=== PATIENT | male | born 1945 | race Hispanic/Latino ===

== ENCOUNTER 2020-04-20 13:50 | Inpatient (IN) | payer MEDICARE, OTHER ==
[~2020-04-20] VITALS: Ht 177.8 cm; Wt 62.0 kg
[~2020-04-20 13:50] MED LIST: ASPI-1012 PO; DIPH25 PO; HYDR-2132 PO
[2020-04-20 14:28] LABS: BASOPHILS % (AUTO) 0.1 % (0.0-5.0); HEMATOCRIT 39.6 % (42-54); LYMPHOCYTES % (AUTO) 10.4 % (21.0-51.0); MEAN CORPUSCULAR HEMOGLOBIN 32.6 pg (27.0-33.0); MEAN CORPUSCULAR HGB CONC 35.1 g/dL (32.0-36.0); MEAN CORPUSCULAR VOLUME 92.7 fL (79-99); MONOCYTES % (AUTO) 7.1 % (3.0-13.0); NEUTROPHILS % (AUTO) 80.6 % (40.0-77.0); PLATELET COUNT (AUTO) 198 K/uL (130-400); RED BLOOD CELL COUNT(AUTO) 4.27 MIL/uL (4.50-6.20); RED CELL DISTRIBUTION WIDTH 12.9 % (11.0-15.5); WHITE BLOOD COUNT (AUTO) 7.9 K/uL (4.8-10.8)
[2020-04-20 14:38] LABS: CREATININE 0.9 mg/dL (0.5-1.5); POTASSIUM 3.3 mmol/L (3.5-5.1)
[2020-04-20 14:40] LABS: PARTIAL THROMBOPLASTIN TIME 28.8 SEC (26.3-35.5); PROTHROMBIN TIME 10.8 SEC (9.6-11.6)
[2020-04-20 14:43] LABS: ALBUMIN 3.7 g/dL (3.5-5.0); BILIRUBIN,TOTAL 1.5 mg/dL (0.2-1.0); TOTAL PROTEIN, SERUM 7.2 g/dL (6.0-8.3)
[2020-04-20 15:09] LABS: BILIRUBIN,URINE Negative (NEGATIVE); COLOR,URINE Yellow (YELLOW); GLUCOSE, URINE (UA) Negative (NEGATIVE); KETONES,URINE 40 mg/dL (NEGATIVE); LEUKOCYTE ESTERASE ,URINE Negative (NEGATIVE); NITRATE,URINE Negative (NEGATIVE); OCCULT BLOOD,URINE Negative (NEGATIVE); PH,URINE 5.5 (5.0-8.0); PROTEIN,URINE Trace mg/dL (NEGATIVE)
[2020-04-20 15:14] LABS: APPEARANCE,URINE SLIGHTLY CLOUDY (CLEAR)
[2020-04-20 15:21] LABS: BACTERIA,URINE Few /HPF (None Seen); MUCUS,URINE Few LPF (None Seen); RBC,URINE 0-1 /HPF (0-1); SQUAMOUS EPITHELIAL CELL,UR Rare /HPF (0-2); WBC,URINE 0-1 /HPF (0-1)
[2020-04-20] MEDS ORDERED: ACETAMINOPHEN 325 MG TAB PO PRN (17:45)
[2020-04-20] MEDS ORDERED: ONDANSETRON HCL 4 MG/2 ML VIAL IV PRN (17:45)
[2020-04-20] MEDS ORDERED: POTASSIUM CHLORIDE 20MEQ/100ML 200 ML IV ONE (19:52)
[2020-04-20] MEDS ORDERED: FAMOTIDINE/PF 20 MG/2 ML VIAL IV ONE (20:40)
[2020-04-20] MEDS: FAMOTIDINE/PF 20 MG/2 ML VIAL IV SCH (21:00)
[2020-04-20 22:20] VITALS: BP 144/80
[2020-04-20] MEDS ORDERED: CHOL100044 PO (22:44)
[2020-04-20] MEDS ORDERED: AMLO10TA7 PO (22:44)
[2020-04-20] MEDS ORDERED: CARB-38 PO (22:44)
[2020-04-20] MEDS ORDERED: AEC81 PO (22:44)
[2020-04-20] MEDS ORDERED: FINA5TAB41 PO (22:44)
[2020-04-20] MEDS ORDERED: GABA300C PO (22:44)
[2020-04-20] MEDS ORDERED: CYAN100084 PO (22:44)
[2020-04-20] MEDS ORDERED: ROPI0.5T7 PO (22:44)
[2020-04-20] MEDS: LIDOCAINE HCL-MPF 1% 2ML VIAL IV PRN (23:20)
[2020-04-20] MEDS: POTASSIUM CHLORIDE 20MEQ/100ML 100 ML IV PRN (23:20)
[2020-04-20] MEDS: DEXTROSE 5 % AND 0.9 % NACL 1,000 ML IV SCH (23:20)
[2020-04-20 23:33] VITALS: BP 146/90
[2020-04-21] VITALS (20 sets, daily range): BP systolic 113–153; BP diastolic 56–81
[2020-04-21] MEDS: ENOXAPARIN SODIUM 30 MG/0.3 ML SQ SCH ×3 (03:30→20:18)
[2020-04-21 05:25] LABS: BASOPHILS % (AUTO) 0.2 % (0.0-5.0); EOSINOPHILS % (AUTO) 0.9 % (0.0-8.0); HEMATOCRIT 35.8 % (42-54); LYMPHOCYTES % (AUTO) 10.1 % (21.0-51.0); MEAN CORPUSCULAR HEMOGLOBIN 31.9 pg (27.0-33.0); MEAN CORPUSCULAR HGB CONC 34.1 g/dL (32.0-36.0); MEAN CORPUSCULAR VOLUME 93.7 fL (79-99); MONOCYTES % (AUTO) 8.1 % (3.0-13.0); NEUTROPHILS % (AUTO) 80.1 % (40.0-77.0); PLATELET COUNT (AUTO) 197 K/uL (130-400); RED BLOOD CELL COUNT(AUTO) 3.82 MIL/uL (4.50-6.20); RED CELL DISTRIBUTION WIDTH 12.7 % (11.0-15.5); WHITE BLOOD COUNT (AUTO) 6.4 K/uL (4.8-10.8)
[2020-04-21 05:43] LABS: ALBUMIN 3.4 g/dL (3.5-5.0); BILIRUBIN,TOTAL 1.4 mg/dL (0.2-1.0); CREATININE 0.9 mg/dL (0.5-1.5); POTASSIUM 3.7 mmol/L (3.5-5.1); TOTAL PROTEIN, SERUM 6.6 g/dL (6.0-8.3)
[2020-04-21] MEDS ORDERED: LIDOCAINE HCL 1% 20 ML VIAL ONE (07:02)
[2020-04-21] MEDS ORDERED: PROPOFOL 10 MG/ML 20ML VIAL IV ONE (07:02)
[2020-04-21] MEDS: DEXTROSE 5 % AND 0.9 % NACL 1,000 ML IV SCH ×3 (07:05→23:16)
--- NOTE | 2020-04-21 08:10 | NUR ---
POSTOP FROM GI LAB INSERTION OF PEG.REVIEW PEG SITE TO HIS ABD . SITE DRSG DRY AND CLEAN AND STARTED POSTOP . V/S . AT THE BEDSIDE AND CALL LIGHT IN REACH..
[2020-04-21] MEDS: FAMOTIDINE/PF 20 MG/2 ML VIAL IV SCH ×2 (10:30→20:37)
--- NOTE | 2020-04-21 10:30 | NUR ---
PEG SITE BLEEDING. BRIGHT RED BLOOD . CLEANSE SITE . A SM PRESSURE DRSG ON ..
--- NOTE | 2020-04-21 10:55 | NUR ---
DR. VEE CALLED .
--- NOTE | 2020-04-21 11:33 | NUR ---
CALLED , AND UP DATE OF PEG SITE WAS BLEEDING WITH ORDERS TO FOLLOW
[2020-04-21] MEDS ORDERED: SILVER NITRATE APPLICATOR 1 SWAB TP SCH (11:45)
--- NOTE | 2020-04-21 12:20 | NUR ---
PEG TO HER LT SIDE, DRSG REMOVED AND APPLICATION OF SILVERNITRATE TO PEG DONE. NOTED NO BLEEDING . TO PEG SITE BUMPER. TIGHT UP . A DRSG APPLICATION ON .
--- NOTE | 2020-04-21 13:09 | NUR ---
RD UPDATE - ACCURATE PATIENT WEIGHT NEEDED Consult for tube feeding received. Need to confirm Patient weight to calculate nutrition needs. Unable to reach RN.
--- NOTE | 2020-04-21 16:06 | NUR ---
RD NOTIFICATION - TUBE FEEDING Pt s/p PEG Placement. Patient weight obtained from RN. Recommend initiate low rate Jevity 1.5 @15mls/hr. Goal rate 50mls/hr. Recommend H2O flushes at 120mls Q4hrs. Recommendations faxed to [phone] RN notified. RD Note: Pt admitted with oropharyngeal Dysphagia, Cachectic. Hx of weight loss and CA as per EMR. Underweight, BMI 19.1. Tube feeding recommendation to meet increased nutrition energy and protein needs. RD to continue to monitor. Please notify as additional nutrition concerns arise. Thank you.
--- NOTE | 2020-04-21 16:14 | NUR ---
ANITA NOTE/IA UNABLE TO MEET WITH PATIENT IN ROOM, NEXT OF KIN CALLED, BRIANDA JONES. PER SIBLING, PATIENT LIVES ALONE, IS INDEPENDENT WITH ADLS, NO USER OF PROVIDERS OR HOME HEALTH, HAS [facility] WC, [facility] AND FEELS SAFE FOR PATIENT TO RETURN HOME. Addendum: 04/21/20 at 1617 by YVETTE LOZANO RN CM Amended: Links added.
--- NOTE | 2020-04-21 16:30 | NUR ---
CHECK JAIDEN . TO HIS PEG SITE CLEAN.
--- NOTE | 2020-04-21 18:30 | NUR ---
PEG TUBE FEEDING STARTED PER DIETITIAN RECOMMENDATIONS VIA PEG. STARTED AT 15CCHR.AND A INCREASE OF 5 CCHR Q 4HR WITH WATER FLUSHES Q 4HRS ORDER. AT THE BEDSIDE AND REVIEW . EDUCATIONS . DRSG TO PEG CLEAN , N OTED NO BLEEDING. TO SITE. HOB UP. ASPIRATION PRECAUTION, REVIEW. .
[2020-04-22] VITALS (7 sets, daily range): BP systolic 120–150; BP diastolic 74–90
--- NOTE | 2020-04-22 02:40 | NUR ---
GAVE WATER FLUSH 120 ML OF WATER AT 20:00, ANOTHER 120 ML AT 00:00, AND WILL GIVE ANOTHER 120 ML AT 04:00 AM CHECKED RESIDUAL OF STOMACH AT 23:30 AND THERE WAS 50 ML OF YELLOW RESIDUAL. ADVANCED JEVITY TO 20 ML PER HOUR. WILL CHECK RESIDUAL AGAIN AT 04:30 AND IF POSSIBLE, WILL ADVANCE JEVITY FEEDING TO 25 ML/HOUR. PATIENT ALERT AND ORIENTED TIMES 3. NO PAIN AND NO ISSUES.
[2020-04-22 04:39] LABS: BASOPHILS % (AUTO) 0.1 % (0.0-5.0); EOSINOPHILS % (AUTO) 0.9 % (0.0-8.0); HEMATOCRIT 34.5 % (42-54); LYMPHOCYTES % (AUTO) 6.3 % (21.0-51.0); MEAN CORPUSCULAR HEMOGLOBIN 32.4 pg (27.0-33.0); MEAN CORPUSCULAR HGB CONC 34.8 g/dL (32.0-36.0); MEAN CORPUSCULAR VOLUME 93.2 fL (79-99); MONOCYTES % (AUTO) 6.3 % (3.0-13.0); NEUTROPHILS % (AUTO) 85.9 % (40.0-77.0); PLATELET COUNT (AUTO) 200 K/uL (130-400); RED CELL DISTRIBUTION WIDTH 12.5 % (11.0-15.5); WHITE BLOOD COUNT (AUTO) 10.6 K/uL (4.8-10.8)
[2020-04-22 05:10] LABS: ALBUMIN 3.2 g/dL (3.5-5.0); BILIRUBIN,TOTAL 1.5 mg/dL (0.2-1.0); CREATININE 0.8 mg/dL (0.5-1.5); POTASSIUM 3.7 mmol/L (3.5-5.1); TOTAL PROTEIN, SERUM 6.3 g/dL (6.0-8.3)
[2020-04-22] MEDS: POTASSIUM CHLORIDE 20MEQ/100ML 100 ML IV PRN (05:25)
[2020-04-22] MEDS: LIDOCAINE HCL-MPF 1% 2ML VIAL IV PRN (05:26)
[2020-04-22] MEDS: ENOXAPARIN SODIUM 30 MG/0.3 ML SQ SCH (09:00)
[2020-04-22] MEDS: FAMOTIDINE/PF 20 MG/2 ML VIAL IV SCH ×2 (09:19→22:26)
[2020-04-22] MEDS: DEXTROSE 5 % AND 0.9 % NACL 1,000 ML IV SCH (10:44)
--- NOTE | 2020-04-22 13:29 | NUR ---
RD UPDATE RD contacted by CM, need for Bolus feeding recommendations. Recommend 5 cans Jevity 1.5 per day (6AM-1can, 10AM-1can, 2PM-1can, 6PM-1can, 10PM-1can). Recommendation faxed to [phone]), CM notified.
--- NOTE | 2020-04-22 15:07 | NUR ---
CM NOTE/DCP HOME/[facility] TUBE FEEDING REQUEST MEET WITH PATIENT IN ROOM, PATIENTS GIRLFRIEND AT BEDSIDE. PER PATIENT, WISHES TO RETURN HOME WITH PEG TUBE FEEDINGS. [facility] FOR [facility], [facility]ED [facility] CLINICAL PACKET WITH PEG TUBE FEEDINGS AND ORDER FOR HOME HEALTH FAXED, ANITA TO FOLLOW UP. REPORT GIVEN TO DIMAS PAULSON, PRIMARY NURSE, WELL PATIENT AND GIRLFRIEND. FAMILY TO LEARN PEG TUBE FEEDINGS FOR HOME USE.
--- NOTE | 2020-04-22 20:15 | NUR ---
Re: Water flushes Since reported pt declined placement, water flushing demonstrated to family at the bedside, showed her how to check for residual, before doing any water flushes pt need to be on HBR, 30degrees to prevent aspiration, N/V. I also emphasize to clamped the tube in case when she will be giving formula or water flush & the pt suddenly with urge to cough, to rapidly clamped the tube to avoid formula splashing to her.Also inform her to make sure leave the pt on HBR for an hour or two to prevent aspiration. I also showed her how to clean the PEG site, but inform once at home clean site with soap & water, pat dry & leave it open to air. For now softwick slit gauze applied. This teaching will need reinforcement & return demonstration. Residual zero, feeding increased to 40cc/hr at this time.
[2020-04-23] MEDS: DEXTROSE 5 % AND 0.9 % NACL 1,000 ML IV SCH ×3 (01:17→13:03)
[2020-04-23 03:56] VITALS: BP 138/77
[2020-04-23] MEDS: LACTULOSE 20 GM/30 ML UDCUP PO PRN (04:11)
[2020-04-23 05:45] LABS: BASOPHILS % (AUTO) 0.1 % (0.0-5.0); EOSINOPHILS % (AUTO) 1.4 % (0.0-8.0); HEMATOCRIT 35.2 % (42-54); LYMPHOCYTES % (AUTO) 8.8 % (21.0-51.0); MEAN CORPUSCULAR HEMOGLOBIN 32.4 pg (27.0-33.0); MEAN CORPUSCULAR HGB CONC 34.7 g/dL (32.0-36.0); MEAN CORPUSCULAR VOLUME 93.4 fL (79-99); MONOCYTES % (AUTO) 8.9 % (3.0-13.0); PLATELET COUNT (AUTO) 210 K/uL (130-400); RED BLOOD CELL COUNT(AUTO) 3.77 MIL/uL (4.50-6.20); RED CELL DISTRIBUTION WIDTH 12.9 % (11.0-15.5); WHITE BLOOD COUNT (AUTO) 9.2 K/uL (4.8-10.8)
[2020-04-23 06:08] LABS: ALBUMIN 3.2 g/dL (3.5-5.0); BILIRUBIN,TOTAL 1.1 mg/dL (0.2-1.0); CREATININE 0.9 mg/dL (0.5-1.5); POTASSIUM 3.2 mmol/L (3.5-5.1); TOTAL PROTEIN, SERUM 6.4 g/dL (6.0-8.3)
[2020-04-23 07:53] VITALS: BP 138/84
[2020-04-23] MEDS: FAMOTIDINE/PF 20 MG/2 ML VIAL IV SCH ×2 (09:00→20:23)
[2020-04-23] MEDS ORDERED: POTASSIUM CHLORIDE 10% ELIXIR 20 MEQ/15 ML UDCUP PO PRN (10:30)
[2020-04-23 12:02] VITALS: BP 140/80
--- NOTE | 2020-04-23 15:00 | NUR ---
CM NOTE/DME/HH CM was notified by staff that pt or family is advising that tube feedings are set up through [facility]. CM then called [facility] and spoke to Karena and pt referral was not found in system. CM then spoke to Brenna who is pts girlfriend and was advised to call brother Marisol Whalen who is in charge of his medical care. CM then spoke to brother who states he has communicated with [facility] only and was notified that arrangements are in process and has not received confirmation of any arrangements. States he was notified by [facility] that home health will more than likely be set up with previous agency called [facility]. CM obtained telephone consent for [facility] to confirm arrangements. CM explained that pt cannot be safely discharged without confirming tube feedings/supplies have been approved by [facility]. Verbalized understanding. ANITA then spoke to pts girlfriend Brenna who is in pt room and updated with above. States she is updating pt also. CM update [facility] HELPER Bella and explained services/DME authorizations are pending through [facility] and cannot be verified until Saturday since [facility] is not open weekends. CM to f/u.
[2020-04-23 16:02] VITALS: BP 136/74
[2020-04-23 20:00] VITALS: BP 142/80
[2020-04-23 23:43] VITALS: BP 149/83
[2020-04-24] MEDS: DEXTROSE 5 % AND 0.9 % NACL 1,000 ML IV SCH ×4 (01:45→22:03)
[2020-04-24 04:00] VITALS: BP 131/72
[2020-04-24 06:02] LABS: HEMATOCRIT 36.8 % (42-54); MEAN CORPUSCULAR HEMOGLOBIN 32.8 pg (27.0-33.0); MEAN CORPUSCULAR HGB CONC 35.3 g/dL (32.0-36.0); MEAN CORPUSCULAR VOLUME 92.9 fL (79-99); RED BLOOD CELL COUNT(AUTO) 3.96 MIL/uL (4.50-6.20); RED CELL DISTRIBUTION WIDTH 12.6 % (11.0-15.5); WHITE BLOOD COUNT (AUTO) 7.8 K/uL (4.8-10.8)
[2020-04-24 06:17] LABS: CREATININE 0.8 mg/dL (0.5-1.5); POTASSIUM 3.8 mmol/L (3.5-5.1)
[2020-04-24 08:00] VITALS: BP 136/84
[2020-04-24] MEDS: ENOXAPARIN SODIUM 30 MG/0.3 ML SQ SCH (09:00)
[2020-04-24] MEDS: FAMOTIDINE/PF 20 MG/2 ML VIAL IV SCH ×2 (09:00→21:59)
[2020-04-24 11:59] VITALS: BP 134/81
[2020-04-24] MEDS: LACTULOSE 20 GM/30 ML UDCUP PO PRN ×2 (15:49→21:59)
[2020-04-24 16:00] VITALS: BP 141/83
[2020-04-24 20:00] VITALS: BP 132/76
--- NOTE | 2020-04-24 22:00 | NUR ---
MEDS SHIFT ASSESSMENT DONE, PLEASE REFER TO CHART. DUE MEDS ADMINISTERED, TOLERATED WELL. DUE FEEDING AND WATER FLUSHES GIVEN BY FAMILY, AGRICULTURAL EDUCATION TEACHER INSTRUCTING AND ASSISTING. PT TOLERATED FEEDING WELL. KEPT HOB ELEVATED. WILL MONITOR PT. CALL LIGHT WITHIN REACH. Addendum: 04/25/20 at 0417 by ISAEL MALONE RN RN Amended: Links added.
[2020-04-25] VITALS: BP 148/83
--- NOTE | 2020-04-25 02:00 | NUR ---
ROUNDS PT FAIRLY ASLEEP, NO DISTRESS NOTED. KEPT UNDISTURBED FOR NOW. WILL CONTINUE TO MONITOR. SIGNIFICANT OTHER ASLEEP AT BEDSIDE.
[2020-04-25] MEDS: DEXTROSE 5 % AND 0.9 % NACL 1,000 ML IV SCH ×3 (03:45→17:03)
[2020-04-25 04:38] VITALS: BP 150/78
[2020-04-25 05:16] LABS: BASOPHILS % (AUTO) 0.4 % (0.0-5.0); EOSINOPHILS % (AUTO) 6.1 % (0.0-8.0); HEMATOCRIT 34.3 % (42-54); LYMPHOCYTES % (AUTO) 10.2 % (21.0-51.0); MEAN CORPUSCULAR HEMOGLOBIN 32.3 pg (27.0-33.0); MEAN CORPUSCULAR VOLUME 92.5 fL (79-99); MONOCYTES % (AUTO) 10.8 % (3.0-13.0); NEUTROPHILS % (AUTO) 71.1 % (40.0-77.0); PLATELET COUNT (AUTO) 181 K/uL (130-400); RED BLOOD CELL COUNT(AUTO) 3.71 MIL/uL (4.50-6.20); RED CELL DISTRIBUTION WIDTH 12.5 % (11.0-15.5); WHITE BLOOD COUNT (AUTO) 7.9 K/uL (4.8-10.8)
[2020-04-25 05:37] LABS: BILIRUBIN,TOTAL 0.9 mg/dL (0.2-1.0); CREATININE 0.8 mg/dL (0.5-1.5); POTASSIUM 3.9 mmol/L (3.5-5.1)
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
[2020-04-25 08:00] VITALS: BP 162/96
[2020-04-25] MEDS: FAMOTIDINE/PF 20 MG/2 ML VIAL IV SCH (09:00)
[2020-04-25] MEDS: ENOXAPARIN SODIUM 30 MG/0.3 ML SQ SCH (09:00)
[2020-04-25 12:00] VITALS: BP 131/78
[2020-04-25 16:00] VITALS: BP 151/90
--- NOTE | 2020-04-25 16:46 | NUR ---
HOME WITH HOME HEALTH * PENDING * FROM [facility]; SPOKE TO YAHIR, STATES WILL BE CONFIRMED TOMORROW. CONFIRMED THAT PEG TUBE FEEDING RX HAS GONE TO [facility] FOR SIGN OFF BEFORE GOING TO [facility]- MAY TAKE ANOTHER TWO DAYS TO APPROVE. WENT TO ROOM- HAD BEEN ADVISED BY REYNA IRELAND AND RN THAT PATIENT/LADY FRIEND WANTS TO GO HOME TODAY. GOT TWO BOTTLES OF JEVITY 1.5 FROM DIETARY. EXPLAINED TO PARTNER MILK NEED TO BE REFRIGERATED AFTER DISCHARGE, VERBALIZED UNDERSTANDING. STATES PATIENT SAFE TO TRANSPORT BY PRIVATE VEHICLE. VERBALIZES FEELING OF SAFETY - STATES HAS BEEN TAUGHTER TO DO FEEDING AND FEELS CONFIDENT TO DO SO. YAHIR FROM [facility] STATES THAT BROTHER OF PATIENT HAD CALLED [facility] AND STATED THAT HE WAS NOT COMFORTABLE WITH PT GOING HOME BECAUSE HIS PARTNER WAS NOT GOING TO BE THERE ALL THE TIME-PARTNER STATES NO, SHE WILL STAY WITH HIM AT ALL TIMES. [facility] DOES NOT HAVE BROTHER ON FACE SHEET AT A CONTACT. PATIENT WANTS TO GO HOME IN CARE OF PARTNER Addendum: 04/25/20 at 1655 by CONSTANTINE NEVAREZ RN CM Amended: Links added.
--- NOTE | 2020-04-25 19:44 | NUR ---
maureen mckinnon, takes patient down on a wheelchair with his . no issues.
== END 2020-04-25 19:40 | disposition home health service (06) | DRG 644 ==
LOC: EDH 13:50 → EDHIP 17:37 → 3DH 22:13
PROVIDERS: ADMIT Family Medicine; ATTEND Family Medicine
PROC: 0DH63UZ Insertion of Feeding Device into Stomach, Percutaneous Approach (ICD-10-PCS; principal; 2020-04-21)
DX: D49.7 Neoplasm of unspecified behavior of endocrine glands and other parts of nervous system (principal); Z68.1 Body mass index [BMI] 19.9 or less, adult; R64 Cachexia; E44.0 Moderate protein-calorie malnutrition; R13.12 Dysphagia, oropharyngeal phase; R62.7 Adult failure to thrive; D64.9 Anemia, unspecified; E86.0 Dehydration; E87.6 Hypokalemia; G20 Parkinson's disease; H53.2 Diplopia; N18.9 Chronic kidney disease, unspecified; Z20.828 Contact with and (suspected) exposure to other viral communicable diseases; Z85.72 Personal history of non-Hodgkin lymphomas; Z92.21 Personal history of antineoplastic chemotherapy; Z83.3 Family history of diabetes mellitus; Z82.5 Family history of asthma and other chronic lower respiratory diseases; Z82.49 Family history of ischemic heart disease and other diseases of the circulatory system; Z82.0 Family history of epilepsy and other diseases of the nervous system
CPT/HCPCS: 36415; 43246; 71045; 80048; 80053; 81001; 82550; 82948; 84484; 85025; 85027; 85610; 85730; 87426; 93005; A4606; G0378; J1650; J2704; J3480; J3490; J7030; J7042; U0003

== ENCOUNTER 2020-05-17 15:35 | Emergency (ER) | payer OTHER ==
[~2020-05-17 15:35] MED LIST changes: +AEC81 PO; +AMLO-258 PO; -ASPI-1012 PO; +CARB-38 PO; +CHOL100044 PO; +CYAN100084 PO; +FINA5TAB41 PO; +GABA300C PO; +ROPI0.5T7 PO
[2020-05-17 16:26] LABS: BASOPHILS % (AUTO) 0.3 % (0.0-5.0); EOSINOPHILS % (AUTO) 0.8 % (0.0-8.0); HEMATOCRIT 38.2 % (42-54); LYMPHOCYTES % (AUTO) 5.4 % (21.0-51.0); MEAN CORPUSCULAR HEMOGLOBIN 34.2 pg (27.0-33.0); MEAN CORPUSCULAR HGB CONC 35.1 g/dL (32.0-36.0); MEAN CORPUSCULAR VOLUME 97.4 fL (79-99); MONOCYTES % (AUTO) 7.7 % (3.0-13.0); NEUTROPHILS % (AUTO) 84.3 % (40.0-77.0); PLATELET COUNT (AUTO) 196 K/uL (130-400); RED BLOOD CELL COUNT(AUTO) 3.92 MIL/uL (4.50-6.20); RED CELL DISTRIBUTION WIDTH 14.8 % (11.0-15.5); WHITE BLOOD COUNT (AUTO) 10.8 K/uL (4.8-10.8)
[2020-05-17 16:39] LABS: INR 0.94 (0.85-1.15); PARTIAL THROMBOPLASTIN TIME 24.7 SEC (26.3-35.5); PROTHROMBIN TIME 10.2 SEC (9.6-11.6)
[2020-05-17 16:41] LABS: CREATININE 1.1 mg/dL (0.5-1.5); POTASSIUM 5.1 mmol/L (3.5-5.1)
[2020-05-17 16:53] LABS: ALBUMIN 3.5 g/dL (3.5-5.0); BILIRUBIN,TOTAL 1.3 mg/dL (0.2-1.0); TOTAL PROTEIN, SERUM 7.4 g/dL (6.0-8.3)
[2020-05-17 16:54] LABS: APPEARANCE,URINE Clear (CLEAR); BILIRUBIN,URINE Negative (NEGATIVE); COLOR,URINE Dark Yellow (YELLOW); GLUCOSE, URINE (UA) Negative (NEGATIVE); KETONES,URINE Negative (NEGATIVE); LEUKOCYTE ESTERASE ,URINE Negative (NEGATIVE); NITRATE,URINE Negative (NEGATIVE); OCCULT BLOOD,URINE Negative (NEGATIVE); PROTEIN,URINE Negative (NEGATIVE)
== END 2020-05-17 18:21 | disposition home or self-care (01) ==
LOC: EDH 15:35
DX: R33.9 Retention of urine, unspecified (principal); E87.1 Hypo-osmolality and hyponatremia; I10 Essential (primary) hypertension; Z87.891 Personal history of nicotine dependence
CPT/HCPCS: 36415; 51702; 74176; 80053; 81003; 82550; 84484; 85025; 85610; 85730; 93005

== ENCOUNTER 2020-05-27 19:19 | Emergency (ER) | payer OTHER ==
[2020-05-27 20:31] LABS: BASOPHILS % (AUTO) 0.4 % (0.0-5.0); EOSINOPHILS % (AUTO) 1.3 % (0.0-8.0); HEMATOCRIT 36.9 % (42-54); LYMPHOCYTES % (AUTO) 6.2 % (21.0-51.0); MEAN CORPUSCULAR HEMOGLOBIN 33.5 pg (27.0-33.0); MEAN CORPUSCULAR HGB CONC 33.6 g/dL (32.0-36.0); MEAN CORPUSCULAR VOLUME 99.7 fL (79-99); MONOCYTES % (AUTO) 8.7 % (3.0-13.0); NEUTROPHILS % (AUTO) 81.6 % (40.0-77.0); PLATELET COUNT (AUTO) 271 K/uL (130-400); RED CELL DISTRIBUTION WIDTH 14.5 % (11.0-15.5); WHITE BLOOD COUNT (AUTO) 13.8 K/uL (4.8-10.8)
[2020-05-27 20:47] LABS: INR 0.96 (0.85-1.15); PARTIAL THROMBOPLASTIN TIME 28.4 SEC (26.3-35.5); PROTHROMBIN TIME 10.4 SEC (9.6-11.6)
[2020-05-27 20:49] LABS: CREATININE 0.7 mg/dL (0.5-1.5); POTASSIUM 4.4 mmol/L (3.5-5.1)
[2020-05-27 20:56] LABS: ALBUMIN 2.8 g/dL (3.5-5.0); BILIRUBIN,TOTAL 0.9 mg/dL (0.2-1.0); TOTAL PROTEIN, SERUM 7.4 g/dL (6.0-8.3)
[2020-05-27] MEDS ORDERED: IPRATROPIUM/ALBUTEROL SULFATE 3 ML SOLUTION IH ONE (21:33)
[2020-05-27] MEDS ORDERED: LEVOFLOXACIN 500 MG TABLET ONE (22:13)
== END 2020-05-27 22:53 | disposition home or self-care (01) ==
LOC: EDH 19:19
DX: J20.9 Acute bronchitis, unspecified (principal); R19.7 Diarrhea, unspecified; I10 Essential (primary) hypertension; Z87.891 Personal history of nicotine dependence
CPT/HCPCS: 36415; 71045; 80053; 82150; 82550; 83690; 84484; 85025; 85610; 85730; 93005; 94640; 96360

== ENCOUNTER 2020-05-29 17:11 | Inpatient (IN) | payer MEDICARE, OTHER ==
[~2020-05-29] VITALS: Ht 180.3 cm; Wt 71.1 kg
[2020-05-29 17:41] LABS: BASOPHILS % (AUTO) 0.3 % (0.0-5.0); EOSINOPHILS % (AUTO) 2.6 % (0.0-8.0); HEMATOCRIT 28.8 % (42-54); LYMPHOCYTES % (AUTO) 9.8 % (21.0-51.0); MEAN CORPUSCULAR HEMOGLOBIN 33.7 pg (27.0-33.0); PLATELET COUNT (AUTO) 246 K/uL (130-400); RED BLOOD CELL COUNT(AUTO) 2.91 MIL/uL (4.50-6.20); RED CELL DISTRIBUTION WIDTH 14.2 % (11.0-15.5); WHITE BLOOD COUNT (AUTO) 6.6 K/uL (4.8-10.8)
[2020-05-29 17:55] LABS: INR 1.05 (0.85-1.15); PARTIAL THROMBOPLASTIN TIME 26.8 SEC (26.3-35.5); PROTHROMBIN TIME 11.3 SEC (9.6-11.6)
[2020-05-29 18:41] LABS: CARBON DIOXIDE 27 mmol/L (21-32); CHLORIDE 101 mmol/L (101-111); CREATININE 0.5 mg/dL (0.5-1.5); GLOMERULAR FILTR. RATE CALC 171 mL/min (>60); GLUCOSE,RANDOM 110 mg/dL (70-105); SODIUM SERUM 136 mmol/L (136-145); UREA NITROGEN, BLOOD 19 mg/dL (7-18)
[2020-05-29 18:45] LABS: APPEARANCE,URINE CLOUDY (CLEAR); BILIRUBIN,URINE NEGATIVE (NEGATIVE); COLOR,URINE YELLOW (YELLOW); GLUCOSE, URINE (UA) NEGATIVE (NEGATIVE); KETONES,URINE NEGATIVE (NEGATIVE); LEUKOCYTE ESTERASE ,URINE LARGE (NEGATIVE); NITRATE,URINE POSITIVE (NEGATIVE); OCCULT BLOOD,URINE NEGATIVE (NEGATIVE); PH,URINE 7.5 (5.0-8.0); PROTEIN,URINE NEGATIVE (NEGATIVE)
[2020-05-29 18:52] LABS: ALANINE AMINOTRANSFERASE 12 U/L (12-78); ASPARTATE AMINOTRANSFERASE 34 U/L (10-37); BILIRUBIN,TOTAL 0.7 mg/dL (0.2-1.0); CREATINE KINASE, TOTAL 52 U/L (21-232); MYOGLOBIN 73 ng/mL (10-92); TOTAL PROTEIN, SERUM 5.4 g/dL (6.0-8.3); TROPONIN I < 0.04 ng/mL (0.00-0.06)
[2020-05-29] MEDS ORDERED: MEROPENEM 1 GM VIAL ONE (19:23)
[2020-05-29 19:54] LABS: AMORPHOUS SEDIMENT,UR Few /LPF (None Seen); RBC,URINE 0-1 /HPF (0-1); SQUAMOUS EPITHELIAL CELL,UR Rare /HPF (0-2)
[2020-05-29 19:55] LABS: BACTERIA,URINE Moderate /HPF (None Seen)
[2020-05-29] MEDS: MEROPENEM 500 MG VIAL IV SCH (22:15)
[2020-05-29] MEDS: SODIUM CHLORIDE 0.9% 1000ML 1,000 ML IV SCH (22:15)
[2020-05-29] MEDS ORDERED: LACTULOSE 20 GM/30 ML UDCUP PO PRN (22:15)
[2020-05-29] MEDS ORDERED: HYDRALAZINE HCL 20 MG/ML VIAL IV PRN (22:15)
[2020-05-29] MEDS ORDERED: ONDANSETRON HCL 4 MG/2 ML VIAL IV PRN (22:15)
[2020-05-29] MEDS ORDERED: ACETAMINOPHEN 325 MG TAB PO PRN (22:15)
[2020-05-29 23:22] LABS: APPEARANCE,URINE Cloudy (CLEAR); BILIRUBIN,URINE Negative (NEGATIVE); COLOR,URINE Yellow (YELLOW); GLUCOSE, URINE (UA) Negative (NEGATIVE); KETONES,URINE Negative (NEGATIVE); LEUKOCYTE ESTERASE ,URINE Large (NEGATIVE); NITRATE,URINE Negative (NEGATIVE); OCCULT BLOOD,URINE Large (NEGATIVE); PH,URINE 8.5 (5.0-8.0); PROTEIN,URINE Trace mg/dL (NEGATIVE)
[2020-05-29 23:58] LABS: WBC,URINE 26-50 /HPF (0-1)
[2020-05-29 23:59] LABS: BACTERIA,URINE Moderate /HPF (None Seen); SQUAMOUS EPITHELIAL CELL,UR 0-2 /HPF (0-2)
[2020-05-30] MEDS: MEROPENEM 500 MG VIAL IV SCH ×3 (06:15→21:27)
[2020-05-30 06:44] LABS: BASOPHILS % (AUTO) 0.5 % (0.0-5.0); EOSINOPHILS % (AUTO) 2.1 % (0.0-8.0); LYMPHOCYTES % (AUTO) 10.3 % (21.0-51.0); MEAN CORPUSCULAR HEMOGLOBIN 33.6 pg (27.0-33.0); MEAN CORPUSCULAR HGB CONC 33.2 g/dL (32.0-36.0); NEUTROPHILS % (AUTO) 72.3 % (40.0-77.0); PLATELET COUNT (AUTO) 250 K/uL (130-400); RED BLOOD CELL COUNT(AUTO) 3.07 MIL/uL (4.50-6.20); RED CELL DISTRIBUTION WIDTH 14.2 % (11.0-15.5); WHITE BLOOD COUNT (AUTO) 6.3 K/uL (4.8-10.8)
[2020-05-30 06:50] LABS: CREATININE 0.5 mg/dL (0.5-1.5); POTASSIUM 3.3 mmol/L (3.5-5.1)
[2020-05-30] MEDS: FAMOTIDINE/PF 20 MG/2 ML VIAL IV SCH ×2 (09:00→21:52)
[2020-05-30] MEDS: SODIUM CHLORIDE 0.9% 1000ML 1,000 ML IV SCH ×2 (11:35→21:52)
--- NOTE | 2020-05-30 16:30 | NUR ---
SPOKE TO SHANTANU FOR DISCHARGE PLANNING PATIENT LIVES WITH PARTNER SHANTANU WHO MOVED IN AFTER LAST HOSPITLAIZTION TO PROVIDE CARE. PT HAS PEG FEEDINGS AND ALSO WENT HOME WITH ANGELITO STEWARD. [facility] [employer] HAS DELCINED SINCE LAST ADMISISON , IS DEPENDENT FOR ADL'S, & SHANTANU STATES NOW IS MAX ASSIST XT WO TO GET FROM BED TO CHAIR, ETC. STATES PT'S BROTHER, LISTED ON FACE SHEET, AND A NEIGHBOR HELP FOR TRANSPORT IN AND OUT OF VEHICLE, STATES BELIEVES HE NEEDS REHAB. CHART REVEALS UTI. POSSIBLE SNF ON DC FOR ST REHAB AND ABX? CM TO FOLLOW Addendum: 06/01/20 at 0859 by CONSTANTINE NEVAREZ RN CM Amended: Links added.
[2020-05-30] MEDS ORDERED: MEROPENEM 1 GM VIAL ONE (17:04)
[2020-05-30] MEDS ORDERED: SODIUM CHLORIDE 0.9% 50 ML IV ONE (17:05)
[2020-05-30 21:20] VITALS: BP 114/68
[2020-05-30] MEDS ORDERED: LEVE-43 PO (22:58)
[2020-05-30] MEDS ORDERED: FOLI0.8T PO (22:58)
[2020-05-31] VITALS (7 sets, daily range): BP systolic 89–131; BP diastolic 58–76
[2020-05-31 04:22] LABS: BASOPHILS % (AUTO) 0.3 % (0.0-5.0); EOSINOPHILS % (AUTO) 2.4 % (0.0-8.0); HEMATOCRIT 30.1 % (42-54); LYMPHOCYTES % (AUTO) 11.8 % (21.0-51.0); MEAN CORPUSCULAR HEMOGLOBIN 33.6 pg (27.0-33.0); MEAN CORPUSCULAR HGB CONC 33.9 g/dL (32.0-36.0); MONOCYTES % (AUTO) 12.6 % (3.0-13.0); PLATELET COUNT (AUTO) 261 K/uL (130-400); RED BLOOD CELL COUNT(AUTO) 3.04 MIL/uL (4.50-6.20); RED CELL DISTRIBUTION WIDTH 14.2 % (11.0-15.5); WHITE BLOOD COUNT (AUTO) 5.9 K/uL (4.8-10.8)
[2020-05-31] MEDS: MEROPENEM 500 MG VIAL IV SCH ×3 (04:34→22:36)
[2020-05-31 04:44] LABS: CREATININE 0.5 mg/dL (0.5-1.5); POTASSIUM 3.3 mmol/L (3.5-5.1)
[2020-05-31] MEDS ORDERED: POTASSIUM CHLORIDE 10% ELIXIR 20 MEQ/15 ML UDCUP PEG SCH (08:00)
[2020-05-31] MEDS: FAMOTIDINE/PF 20 MG/2 ML VIAL IV SCH ×2 (10:23→20:32)
[2020-05-31] MEDS ORDERED: AMLODIPINE BESYLATE 5 MG TAB PO SCH (11:50)
[2020-05-31] MEDS: CYANOCOBALAMIN (VITAMIN B-12) 1,000 MCG TABLET PO SCH (11:55)
[2020-05-31] MEDS: FOLIC ACID 1 MG TABLET PO SCH (11:56)
[2020-05-31] MEDS: ROPINIROLE HCL 0.25 MG TABLET PO SCH ×2 (11:57→20:51)
--- NOTE | 2020-05-31 13:15 | NUR ---
RD NOTE PT ADMITTED DUE TO DYSPHAGIA, GBW, AND UTI. PT HAS A PEG TUBE IN PLACE. RD CONSULTED FOR TF RECOMMENDATIONS. PER PREVIOUS EMR, PT HAS GAINED WEIGHT HOWEVER, HIS BMI OF 20 IS STILL LOW FOR AGE. PER NUTRITION FOCUSED PHYSICAL ASSESSMENT, PT HAS EVIDENCE OF MODERATE-SEVERE MALNUTRITION. 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 PT IS AT HIGH RISK FOR MODERATE TO SEVERE MALNUTRITION EVIDENCED BY LOW BMI FOR AGE AND NUTRITION FOCUSED PHYSICAL ASSESSMENT. RD RECOMMENDATION: CONTINUOS TF WITH JEVITY 1.5. INITIATE AT 20 ML/HR FOR FIRST 5 HRS, INCREASE RATE TOLERATED BY 5 ML EVERY 5 HRS TO A GOAL RATE OF 55 ML/HR. WATER FLUSH OF 195 ML Q6 THIS WILL PROVIDE: 1320 TOTAL VOLUME, 1980 KCAL, 84 GM PROTEIN 1003 WATER FROM FORMULA. MONITOR TF RESIDUALS, AND TOLERANCE. TF RECOMMENDATION FAXED TO 3C AT 1PM RD WILL CONTINUE TO FOLLOW. LABS: K 3.3, BUN 22, CREAT 0.5, BG 102, ALB 2.0 Addendum: 05/31/20 at [address] Amended: Links added.
[2020-05-31] MEDS: LEVETIRACETAM 100 MG/ML 5 ML UDCUP PO SCH ×2 (14:13→20:32)
[2020-05-31] MEDS: CARBIDOPA-LEVODOPA 25-100 TAB PO SCH ×2 (14:13→20:33)
[2020-05-31] MEDS: SODIUM CHLORIDE 0.9% 1000ML 1,000 ML IV SCH ×2 (14:24→19:59)
--- NOTE | 2020-05-31 18:00 | NUR ---
TUBE FEED STARTED PLACEMENT CHECK WITH ARE BOLUS, AND NO RESIDUAL. TUBE FEED AT 20 ML/HR JEVITY 1.5. PT IS AND NOT HAPPY. THEY BOTH WANT THE TUBE FEEDING THAT WAS GIVEN AT HOME, WHICH WAS ENSURE PLUS 8 OZ EVERY 3-4 HRS WITH FLUSH OF 100ML OF WATER BEFORE AND AFTER EACH FEEDING. [facility] UP WITH DIETITIAN TOMORROW.
--- NOTE | 2020-05-31 20:32 | NUR ---
MEDS Meds crushed and given thru peg.Peg tube flushed with no difficulty.Hob up 45 degrees.Tolerating tubefeeding via pump.No residual noted.Pt. at bedside.
[2020-05-31] MEDS: GABAPENTIN 300 MG CAPSULE PO SCH (20:33)
[2020-05-31] MEDS: FINASTERIDE 5 MG TABLET PO SCH (20:33)
[2020-05-31] MEDS ORDERED: LEVETIRACETAM 500 MG TABLET PO SCH (21:00)
--- NOTE | 2020-05-31 22:00 | NUR ---
BEDBATH Pt given a bed bath per staff,reported a small necrotic area at the tip of the penis.De Guzman catheter care done.De Guzman cath secured with statlock.
--- NOTE | 2020-05-31 23:05 | NUR ---
DNR signed DNR form.
--- NOTE | 2020-05-31 23:32 | NUR ---
CUTTER IN Paged CIRILO SINGH CUTTER IN re pt.s bp in the 80's systolic.Pt asleep,arousable.
--- NOTE | 2020-05-31 23:37 | NUR ---
RN OFFICE Rogerio SINGH np called back,he gave order to give 500 ml ns bolus for low bp.
[2020-05-31] MEDS ORDERED: SODIUM CHLORIDE 0.9% 500ML 500 ML IV ONE (23:39)
--- NOTE | 2020-05-31 23:41 | NUR ---
NS BOLUS NS 500 ML Bolus given for low bp.
[2020-05-31] MEDS ORDERED: SODIUM CHLORIDE 0.9% 500ML 500 ML in SODIUM CHLORIDE 0.9% 500ML 500 ML IV SCH (23:45)
[2020-06-01] VITALS (8 sets, daily range): BP systolic 81–129; BP diastolic 41–73
[2020-06-01 06:37] LABS: CREATININE 0.6 mg/dL (0.5-1.5); POTASSIUM 3.6 mmol/L (3.5-5.1)
[2020-06-01] MEDS: ***HM*** (Cholecalciferol (Vitamin D3) (Vitamin D3) 25 MCG) PO SCH (09:00)
--- NOTE | 2020-06-01 09:29 | NUR ---
RD UPDATE RD to change tube feeding feeding formula for Pt family preference. Recommend Bolus Tube Feeding, Ensure Enlive Formula, 5 cans per day (Schedule 6AM-1can, 10AM-1 can, 2PM-1can, 6PM-1can, 10PM-1can) Recommend 70-100mls free H2O before and after each feeding. Recommendations faxed to Eileen RN notified. RD to continue to monitor. Please notify as additional nutrition concerns arise. Thank you.
[2020-06-01] MEDS: ROPINIROLE HCL 0.25 MG TABLET PO SCH ×2 (10:55→22:04)
[2020-06-01] MEDS: CARBIDOPA-LEVODOPA 25-100 TAB PO SCH ×3 (10:56→22:05)
[2020-06-01] MEDS: GABAPENTIN 300 MG CAPSULE PO SCH ×2 (10:56→22:05)
[2020-06-01] MEDS: CEFTRIAXONE SODIUM 1 GM IVP SCH (10:57)
[2020-06-01] MEDS: CYANOCOBALAMIN (VITAMIN B-12) 1,000 MCG TABLET PO SCH (10:57)
[2020-06-01] MEDS: FAMOTIDINE/PF 20 MG/2 ML VIAL IV SCH ×2 (10:57→22:04)
[2020-06-01] MEDS: ASPIRIN 81 MG EC TAB PO SCH (10:57)
[2020-06-01] MEDS: LEVETIRACETAM 100 MG/ML 5 ML UDCUP PO SCH ×2 (10:57→22:04)
[2020-06-01] MEDS: FOLIC ACID 1 MG TABLET PO SCH (10:57)
[2020-06-01] MEDS: SODIUM CHLORIDE 0.9% 1000ML 1,000 ML IV SCH (22:04)
[2020-06-01] MEDS: FINASTERIDE 5 MG TABLET PO SCH (22:05)
--- NOTE | 2020-06-01 22:25 | NUR ---
NOTE SITE CARE DONE TO PEG TUBE SITE. CLEANED AREA, PAT DRY AND APPLIED DRY GAUZE. NO REDNESS OR BREAKDOWN NOTED.
[2020-06-02] MEDS: ACETAMINOPHEN 325 MG TAB PO PRN (00:37)
--- NOTE | 2020-06-02 00:50 | NUR ---
NOTE 0044 PATIENT WITH O2 SAT 86% PER SCHEDULING CLERK. WENT TO CHECK AND PATIENT SAT 87-89% ON ROOM AIR. DENIES SOB, BUT SPOUSE SAYS HE HAS BEEN HAVING AN ON AND OFF COUGH SINCE THE MORNING. AUSCULTATED HIS LUNGS AND NOTED SOME CRACKLES. CONTACTED HOSPITALIST AND SPOKE TO CIRILO SINGH NP UPON CALL BACK. NOTIFIED OF ABOVE. ORDERS RECEIVED FOR CHEST XRAY AND DUO NEB NOW AND Q6HRS PRN. NOTIFIED RT TSU OF NEW ORDER. 0056 Aries [place] NP HERE TO SEE PATIENT. ADDED O2 N/C.
[2020-06-02] MEDS ORDERED: IPRATROPIUM/ALBUTEROL SULFATE 3 ML SOLUTION IH ONE (00:58)
[2020-06-02] MEDS ORDERED: IPRATROPIUM/ALBUTEROL SULFATE 3 ML SOLUTION IH PRN (01:00)
[2020-06-02] MEDS: HEPARIN SODIUM 5000UNIT/ML 1ML VIAL SQ SCH ×4 (01:00→23:54)
--- NOTE | 2020-06-02 01:10 | NUR ---
NOTE PATIENT RECEIVED NEB TREATMENT. SAYS HE FEELS BETTER. CONTINUES ON O2 2L N/C SAT 93%.
[2020-06-02 04:00] VITALS: BP 135/77
[2020-06-02 04:36] LABS: MAGNESIUM 1.8 mg/dL (1.80-2.40); POTASSIUM 3.8 mmol/L (3.5-5.1)
[2020-06-02 07:30] VITALS: BP 114/55
[2020-06-02] MEDS: CEFTRIAXONE SODIUM 1 GM IVP SCH (08:35)
[2020-06-02] MEDS: LEVETIRACETAM 100 MG/ML 5 ML UDCUP PO SCH ×2 (08:36→21:17)
[2020-06-02] MEDS: CARBIDOPA-LEVODOPA 25-100 TAB PO SCH ×3 (08:36→21:17)
[2020-06-02] MEDS: FOLIC ACID 1 MG TABLET PO SCH (08:36)
[2020-06-02] MEDS: ASPIRIN 81 MG EC TAB PO SCH (08:36)
[2020-06-02] MEDS: FAMOTIDINE/PF 20 MG/2 ML VIAL IV SCH ×2 (08:36→21:23)
[2020-06-02] MEDS: CYANOCOBALAMIN (VITAMIN B-12) 1,000 MCG TABLET PO SCH (08:36)
[2020-06-02] MEDS: GABAPENTIN 300 MG CAPSULE PO SCH ×2 (08:36→21:17)
[2020-06-02] MEDS: ROPINIROLE HCL 0.25 MG TABLET PO SCH ×2 (08:38→21:17)
[2020-06-02] MEDS: ***HM*** (Cholecalciferol (Vitamin D3) (Vitamin D3) 25 MCG) PO SCH (09:00)
[2020-06-02 11:00] VITALS: BP 93/57
--- NOTE | 2020-06-02 11:57 | NUR ---
CM Note: [facility] pending approval CM spoke to pt's sibling and zeve discussed MD recommendations for rehab placement. Brother and fiancee agreeable for IRU first then SNF, telephone consent obtained for #1 [facility] #2[facility] #3[facility], witnessed by Radha PAULSON. Faxed order, clinicals, PT, Covid transfer form, covid result to [facility], confirmation received. Spoke to Nancy, will come eval pt. Pt pending approval. MOT semi-filled pending to be completed once approval obtained, flagged in chart. EMS filled out pending to fax w/current date. Primary nurse Teresa PAULSON aware. CM to continue to follow up.
[2020-06-02 16:00] VITALS: BP 122/68
[2020-06-02 20:33] VITALS: BP 128/74
[2020-06-02] MEDS: FINASTERIDE 5 MG TABLET PO SCH (21:17)
--- NOTE | 2020-06-02 22:00 | NUR ---
NOTE FEEDING NOT DONE SCHEDULED AT THIS TIME D/T PT'S FIANCE REPORTING THAT PT RECEIVED HIS FEEDING AFTER 7 AND IT IS "TOO SOON" FOR NEXT FEEDING. ASSESSED RESIDUALS- 5ML NOTED AND REPLACED.PT VOCALIZING "NO ENSURE". WILL PROCEED WITH NEXT FEEDING SCHEDULED/REQUESTED. MEDS WERE ADMIN PER MAR VIA GTUBE-PT CARLENE WELL. HOB REMAINS AT 45 DEGREE ANGLE
--- NOTE | 2020-06-02 22:10 | NUR ---
ORAL CARE DONE. PT CARLENE WELL. ORAL MUCOSA EXTREMELY DRY AND CRACKED. ORAL SWABS WITH SUCTION CATHETER USED. PT'S FIANCE AT BEDSIDE.
[2020-06-02 23:40] VITALS: BP 92/57
[2020-06-03 04:34] VITALS: BP 111/64
[2020-06-03 05:38] LABS: CREATININE 0.6 mg/dL (0.5-1.5); MAGNESIUM 2.1 mg/dL (1.80-2.40)
[2020-06-03 05:43] LABS: BASOPHILS % (AUTO) 0.6 % (0.0-5.0); EOSINOPHILS % (AUTO) 2.3 % (0.0-8.0); HEMATOCRIT 31.4 % (42-54); LYMPHOCYTES % (AUTO) 12.5 % (21.0-51.0); MEAN CORPUSCULAR HEMOGLOBIN 33.5 pg (27.0-33.0); MEAN CORPUSCULAR HGB CONC 33.4 g/dL (32.0-36.0); MEAN CORPUSCULAR VOLUME 100.3 fL (79-99); MONOCYTES % (AUTO) 12.6 % (3.0-13.0); NEUTROPHILS % (AUTO) 67.8 % (40.0-77.0); PLATELET COUNT (AUTO) 232 K/uL (130-400); RED BLOOD CELL COUNT(AUTO) 3.13 MIL/uL (4.50-6.20); RED CELL DISTRIBUTION WIDTH 14.2 % (11.0-15.5); WHITE BLOOD COUNT (AUTO) 6.5 K/uL (4.8-10.8)
[2020-06-03] MEDS: HEPARIN SODIUM 5000UNIT/ML 1ML VIAL SQ SCH ×3 (05:55→23:00)
[2020-06-03 08:00] VITALS: BP 99/61
[2020-06-03] MEDS: ***HM*** (Cholecalciferol (Vitamin D3) (Vitamin D3) 25 MCG) PO SCH (09:00)
--- NOTE | 2020-06-03 10:00 | NUR ---
ROUND PT IS IN BED AWAKE, ORAL CAVITY IS DRY AND CRACKS ON HIS TONGUE, ORAL CARE PERFORMED. PT IS UNABLE TO CLOSE MOUTH. CHECKED PEG PLACEMENT, GAVE MEDS AND BOLUS TUBE FEED WITH FLUSH WITH 70 ML OF WATER BEFORE AND AFTER.
[2020-06-03] MEDS: LEVETIRACETAM 100 MG/ML 5 ML UDCUP PO SCH ×2 (10:08→20:21)
[2020-06-03] MEDS: CEFTRIAXONE SODIUM 1 GM IVP SCH (10:08)
[2020-06-03] MEDS: FAMOTIDINE/PF 20 MG/2 ML VIAL IV SCH ×2 (10:08→20:21)
[2020-06-03] MEDS: CARBIDOPA-LEVODOPA 25-100 TAB PO SCH ×3 (10:09→20:21)
[2020-06-03] MEDS: FOLIC ACID 1 MG TABLET PO SCH (10:09)
[2020-06-03] MEDS: CYANOCOBALAMIN (VITAMIN B-12) 1,000 MCG TABLET PO SCH (10:09)
[2020-06-03] MEDS: ROPINIROLE HCL 0.25 MG TABLET PO SCH ×2 (10:09→20:21)
[2020-06-03] MEDS: GABAPENTIN 300 MG CAPSULE PO SCH ×2 (10:09→20:22)
[2020-06-03] MEDS: ASPIRIN 81 MG EC TAB PO SCH (10:09)
[2020-06-03 11:20] VITALS: BP 105/63
--- NOTE | 2020-06-03 11:51 | NUR ---
CM Note: [facility] denial CM spoke to Nancy hoover/FREDI, as per rep Med Dr denied request at this time, unable to meet pt's need, recommends for pt to go to lower level care facility SNF. CM spoke to Daisy pt's rodrigue informed of denial, as per Daisy go ahead and follow plan B for HNR. Primary nurse Teresa PAULSON aware. CM to continue to follow up.
--- NOTE | 2020-06-03 11:53 | NUR ---
CM Note: HNR pending approval CM faxed order, clinicals, PT, PASRR, Covid transfer form, covid result from 05/29, confirmation received. Order another covid rapid and pcr at this time as last test is over 72hrs in case needed. Spoke to Joyce gomez aware, rodrigue unsure if pt has medicare, as per rodrigue agreeable to use medicare if pt has it. Will come eval pt. Pt pending approval. EMS arranged for today in case, primary nurse to call [facility] once pt ready to DC. Dr Burt updated. Primary nurse Teresa PAULSON aware. CM to continue to follow up.
--- NOTE | 2020-06-03 12:30 | NUR ---
ROUNDING PT AND IMMANUEL HAD A COMBUSTION ANALYST COME IN FROM [facility], TO GET THEM , IT WAS APPROVED THRU MIKE AND [facility].
--- NOTE | 2020-06-03 14:00 | NUR ---
ROUND PT GIVEN 1 BOTTLE OF ENSURE PLUS BOLUS AND FLUSHED WITH WATER 70 ML BEFORE AND AFTER.
--- NOTE | 2020-06-03 14:45 | NUR ---
[facility] JODI GOMEZ RN FROM [facility] CAME TO SEE PATIENT STATE THAT HE WILL QUALIFY JUST WAITING ON MEDICARE
[2020-06-03 16:00] VITALS: BP 120/69
--- NOTE | 2020-06-03 17:43 | NUR ---
RD UPDATE Pt is tolerating bolus tube feedings of Ensure, 5 cans per day. Pt with no noted GI distress. RD to continue to monitor.
[2020-06-03 19:42] VITALS: BP 120/72
[2020-06-03] MEDS: FINASTERIDE 5 MG TABLET PO SCH (20:21)
[2020-06-03 23:25] VITALS: BP 138/67
[2020-06-04 03:35] VITALS: BP 117/71
[2020-06-04 06:44] LABS: CREATININE 0.5 mg/dL (0.5-1.5); POTASSIUM 3.9 mmol/L (3.5-5.1)
--- NOTE | 2020-06-04 07:15 | NUR ---
ASSESSMENT: PT IS IN BED, AAOX 2 IS ABLE TO COMMUNICATE BY NODDING, PT LOOKS VERY FRAIL, PEG PLACEMENT CHECK BY BOLUS AIR. EATON INTACT AND PATIENT WILL CONTINUE TO MONITOR.
[2020-06-04] MEDS: HEPARIN SODIUM 5000UNIT/ML 1ML VIAL SQ SCH ×2 (07:16→14:35)
[2020-06-04 07:41] VITALS: BP 109/60
--- NOTE | 2020-06-04 08:00 | NUR ---
FEED PT RECEIVED A BOLUS FEED OF ENSURE FOLLOWED BY 70 ML OF WATER BEFORE AND AFTER. PT CARLENE FEEDING WELL.
[2020-06-04] MEDS: ***HM*** (Cholecalciferol (Vitamin D3) (Vitamin D3) 25 MCG) PO SCH (09:00)
[2020-06-04] MEDS: CYANOCOBALAMIN (VITAMIN B-12) 1,000 MCG TABLET PO SCH (09:40)
[2020-06-04] MEDS: CARBIDOPA-LEVODOPA 25-100 TAB PO SCH ×3 (09:40→20:29)
[2020-06-04] MEDS: LEVETIRACETAM 100 MG/ML 5 ML UDCUP PO SCH ×2 (09:40→20:25)
[2020-06-04] MEDS: FOLIC ACID 1 MG TABLET PO SCH (09:40)
[2020-06-04] MEDS: ASPIRIN 81 MG EC TAB PO SCH (09:40)
[2020-06-04] MEDS: CEFTRIAXONE SODIUM 1 GM IVP SCH (09:40)
[2020-06-04] MEDS: FAMOTIDINE/PF 20 MG/2 ML VIAL IV SCH ×2 (09:41→20:25)
[2020-06-04] MEDS: ROPINIROLE HCL 0.25 MG TABLET PO SCH ×2 (09:41→20:25)
[2020-06-04] MEDS: GABAPENTIN 300 MG CAPSULE PO SCH ×2 (09:41→20:25)
[2020-06-04 11:28] VITALS: BP 90/60
--- NOTE | 2020-06-04 12:00 | NUR ---
FEED PT RECEIVED 1 BTL OF ENSURE BOLUS, FOLLOWED BY 70 ML OF WATER BEFORE AND AFTER FEEDING. NO RESIDUAL AT THIS TIME.
[2020-06-04] MEDS: ACETAMINOPHEN 325 MG TAB PO PRN (12:22)
--- NOTE | 2020-06-04 14:30 | NUR ---
DR. DEMPSEY SPOKE TO REGARDING HOSPICE, S.S SERVICE CONSULTED FOR HOSPICE AND CM CONSULTED FOR POA
[2020-06-04 16:00] VITALS: BP 106/65
--- NOTE | 2020-06-04 16:15 | NUR ---
ROUND PT IS AAX1 GIVEN 1 CAN ENSURE BOLUS FOLLOWED BY 70ML WATER BEFORE AND AFTER. PT LUNGS ARE DIMINISHED WITH CRACKLES.
[2020-06-04 19:00] VITALS: BP 112/63
[2020-06-04] MEDS: FINASTERIDE 5 MG TABLET PO SCH (20:25)
[2020-06-05 00:05] VITALS: BP 126/66
--- NOTE | 2020-06-05 02:55 | NUR ---
CALLED TO ROOM BY SPOUSE. PT NOT BREATHING, NO PULSE. CALLED HOUSE SUPER TO PRONOUNCE .
--- NOTE | 2020-06-05 03:01 | NUR ---
PRONOUNCEMENT SUMMONED BY STAFF TO PATIENT'S ROOM. PT. SUPINE IN BED. VISITOR AT BEDSIDE. NO HEART TONES, BREATH SOUNDS OR BLOOD PRESSURE AUDIBLE ON AUSCULTATION. PUPILS FIXED AND DILATED. TIME OF : 300.
--- NOTE | 2020-06-05 03:01 | NUR ---
A/C TECH DJ HERE TO PRONOUNCE PT'S .
== END 2020-06-05 04:01 | disposition expired | DRG 689 ==
LOC: EDH 17:11 → EDHIP 22:04 → 3CH 05-30 20:15
PROVIDERS: ADMIT Internal Medicine; ATTEND Internal Medicine
DX: N39.0 Urinary tract infection, site not specified (principal); J96.91 Respiratory failure, unspecified with hypoxia; R53.2 Functional quadriplegia; J98.11 Atelectasis; E44.0 Moderate protein-calorie malnutrition; G21.19 Other drug induced secondary parkinsonism; Z66 Do not resuscitate; R62.7 Adult failure to thrive; R13.10 Dysphagia, unspecified; Z74.01 Bed confinement status; D64.9 Anemia, unspecified; G20 Parkinson's disease; E86.0 Dehydration; Z20.828 Contact with and (suspected) exposure to other viral communicable diseases; Z92.21 Personal history of antineoplastic chemotherapy; Z92.3 Personal history of irradiation; Z96.652 Presence of left artificial knee joint; Z93.1 Gastrostomy status; L89.90 Pressure ulcer of unspecified site, unspecified stage; K59.00 Constipation, unspecified; D35.2 Benign neoplasm of pituitary gland; E83.51 Hypocalcemia; N18.9 Chronic kidney disease, unspecified; I12.9 Hypertensive chronic kidney disease with stage 1 through stage 4 chronic kidney disease, or unspecified chronic kidney disease; Z68.21 Body mass index [BMI] 21.0-21.9, adult; R53.81 Other malaise; R26.2 Difficulty in walking, not elsewhere classified; R19.7 Diarrhea, unspecified; R13.12 Dysphagia, oropharyngeal phase
CPT/HCPCS: 36415; 70450; 71045; 80048; 80053; 81001; 82550; 83605; 83735; 83874; 84132; 84145; 84484; 85025; 85610; 85730; 87040; 87046; 87077; 87088; 87177; 87186; 87324; 87328; 87426; 93005; 93971; 94640; 94664; 97039; G0378; J0696; J1644; J2185; J3490; J7030; J7040; U0003